=== PATIENT | male | born 1955 | race Caucasian/White ===

== ENCOUNTER 2025-01-18 09:34 | Day surgery (SDC) | payer MEDICARE ==
[~2025-01-18] VITALS: Ht 182.9 cm; Wt 85.2 kg
== END 2025-01-18 13:00 | disposition home or self-care (01) ==
LOC: ORSCMMR 09:34 → ORD 10:30 → ORSCMMR 13:00
PROC: 0DBN8ZX Excision of Sigmoid Colon, Via Natural or Artificial Opening Endoscopic, Diagnostic (ICD-10-PCS; principal; 2025-01-18)
DX: Z12.11 Encounter for screening for malignant neoplasm of colon (principal); Z86.0100 Personal history of colon polyps, unspecified; K63.5 Polyp of colon; E11.39 Type 2 diabetes mellitus with other diabetic ophthalmic complication; I10 Essential (primary) hypertension; K57.30 Diverticulosis of large intestine without perforation or abscess without bleeding; Z79.85 Long-term (current) use of injectable non-insulin antidiabetic drugs